=== PATIENT | female | born 2000 | race Caucasian/White ===

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

== ENCOUNTER → 2019-03-21 | Outpatient (CLI) | payer BC ==
--- NOTE | 2019-03-21 14:15 | RADIOLOGY IMAGING REPORT ---
FAC[place] [facility] [place]IENT NAME: Yumiko Daniels : 2000 MR: [id number] V: [id number] EXAM DATE: ORDERING PHYSICIAN: OUMAR CHANG TECHNOLOGIST: Location: [facility] - [place], [place] Patient: Yumiko Daniels : 2000 Visit/Account:[id number] Date of Sevice: 03/21/2019 EXAMINATION: Abdominal ultrasound complete HISTORY: Abdominal pain. COMPARISON: CT February 07, 2015 FINDINGS: Gallbladder: No stones, wall thickening, pericholecystic fluid or sonographic Krishna sign. Liver: Negative. Common duct: Normal measuring three mm. Pancreas: Negative. Spleen: Normal in size and echogenicity measuring eight cm in length. Kidneys: Normal in size and echogenicity, the right measures 10.4 cm in length, and the left 10.6 cm . No hydronephrosis. Upper abdominal aorta and IVC: Negative. Ascites: None. IMPRESSION: Unremarkable abdomen ultrasound Report Dictated By: Joana Maurice MD at 03/21/2019 2:09 PM Report E-Signed By: Joana Maurice MD at 03/21/2019 2:11 PM WSN:[id number]
== END ==
LOC: US 00:27
PROVIDERS: ATTEND Internal Medicine
DX: Z00.00 Encounter for general adult medical examination without abnormal findings (principal); R25.1 Tremor, unspecified; R25.2 Cramp and spasm; N92.6 Irregular menstruation, unspecified; F41.9 Anxiety disorder, unspecified; R10.13 Epigastric pain; Z86.010 Personal history of colon polyps
CPT/HCPCS: 76700

== ENCOUNTER 2019-04-23 03:14 | Emergency (ER) | payer OTHER, BC ==
[2019-04-23] MEDS ORDERED: PANT40TA65 PO (03:25)
[2019-04-23] MEDS ORDERED: ESCI20TA38 PO (03:25)
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
[2019-04-23 04:30] VITALS: BP 106/77
== END 2019-04-23 05:05 | disposition home or self-care (01) ==
LOC: ER 03:28
DX: S06.0X0A Concussion without loss of consciousness, initial encounter (principal); S00.33XA Contusion of nose, initial encounter; F41.1 Generalized anxiety disorder; V49.88XA Car occupant (driver) (passenger) injured in other specified transport accidents, initial encounter; Y93.89 Activity, other specified; Y92.410 Unspecified street and highway as the place of occurrence of the external cause; Y99.8 Other external cause status
CPT/HCPCS: 70160; 99284